=== PATIENT | female | born 2000 | race Hispanic/Latino ===

== ENCOUNTER 2023-03-03 22:27 | Emergency (ER) | payer OTHER ==
[~2023-03-03] VITALS: Ht 157.5 cm; Wt 89.4 kg
[2023-03-03] MEDS ORDERED: ONDANSETRON HCL 4 MG ORAL DISINTEGRATING TAB ONE (22:55)
[2023-03-03] MEDS ORDERED: SODIUM CHLORIDE 0.9% 1000ML 1,000 ML IV ONE (23:15)
[2023-03-03] MEDS ORDERED: SODIUM CHLORIDE 0.9% 1000ML 1,000 ML ONE ×2 (23:32→23:33)
[2023-03-03] MEDS ORDERED: FAMOTIDINE 20 MG/2 ML VIAL IV ONE (23:33)
[2023-03-03] MEDS ORDERED: ONDANSETRON HCL INJ 2MG/ML 2ML 2 MG/ML VIAL ONE (23:33)
[2023-03-04] MEDS ORDERED: ONDANSETRON HCL 4 MG ORAL DISINTEGRATING TAB PO ONE ×2 (00:01→01:00)
[2023-03-04] MEDS ORDERED: ONDANSETRON ODT4 MG PO (00:27)
[2023-03-04] MEDS ORDERED: ONDANSETRON HCL 4 MG ORAL DISINTEGRATING TAB ONE (00:43)
[2023-03-04 06:37] VITALS: BP 122/74; PULSE 70; RESP 16; TEMP 97; O2SAT 100
== END 2023-03-04 00:20 | disposition home or self-care (01) ==
LOC: FSED 22:35
DX: R11.2 Nausea with vomiting, unspecified (principal); E86.1 Hypovolemia; E86.9 Volume depletion, unspecified
CPT/HCPCS: 99283; J2405; J7030; Q0162 ×2